=== PATIENT | male | born 1960 | race Caucasian/White ===

== ENCOUNTER → 2017-09-15 | Outpatient (CLI) | payer BC ==
--- NOTE | 2017-09-15 13:46 | CT ---
EXAMINATION TYPE: CT abdomen pelvis wo con DATE OF EXAM: 09/15/2017 COMPARISON: NONE HISTORY: Acute diverticulitis, right lower quadrant pain and flank pain CT DLP: 1848.4 mGycm Automated exposure control for dose reduction was used. TECHNIQUE: Helical acquisition of images was performed from the lung bases through the pelvis. FINDINGS: Lack of intravenous contrast limits evaluation of the solid viscera. LUNG BASES: No significant abnormality is appreciated. LIVER/GB: There is diffuse hypoattenuation of the hepatic parenchyma creating criteria for hepatic st eatosis. This limits evaluation for underlying hepatic masses as does lack of intravenous contrast. N o cholelithiasis is seen. Common bile duct is nonenlarged. No fat stranding surrounding the gallbladd er. PANCREAS: No ductal dilatation. Mild atrophy of the pancreatic head. SPLEEN: No significant abnormality is seen. ADRENALS: No nodularity or thickening. KIDNEYS: There is mild bilateral perinephric fat stranding that is nonspecific, however in this patie nt with flank pain correlation with urinalysis is recommended. No hydronephrosis or nephrolithiasis. FREE AIR: No free air is visualized ADENOPATHY: No greater than 1 cm short axis and within the abdomen or pelvis. REPRODUCTIVE ORGANS: Prostate gland is slightly heterogenous. URINARY BLADDER: No significant abnormality is seen. Small urachal remnant is incidentally noted. OSSEOUS STRUCTURES: Mild multilevel degenerative changes of the spine with intervertebral disc space r at L5-S1. BOWEL: The appendix is contrast-filled proximally and within normal limits of size without periappen diceal fat stranding. Terminal ileum is nonthickened. There is no evidence of dilated bowel or abhijit lonic fat stranding. No focal bowel wall thickening is appreciated. OTHER: Small fat filled filled umbilical hernia is incidentally noted. IMPRESSION: 1. NO CT EVIDENCE OF APPENDICITIS, COLITIS, CHOLECYSTITIS, OBSTRUCTIVE UROPATHY OR PANCREATITIS IN TH IS PATIENT WITH RIGHT-SIDED PAIN. NONSPECIFIC PERINEPHRIC FAT STRANDING IS SEEN. CORRELATION WITH URI NALYSIS IS RECOMMENDED 2. FINDINGS APPROACHING CRITERIA FOR MILD HEPATIC STEATOSIS.
== END | disposition home or self-care (01) ==
LOC: RADCTMAIN 11:48
PROVIDERS: ATTEND Family Medicine
DX: R10.9 Unspecified abdominal pain (principal)
CPT/HCPCS: 74176

== ENCOUNTER → 2017-09-19 | Outpatient (CLI) | payer BC ==
--- NOTE | 2017-09-19 09:37 | NM ---
EXAMINATION TYPE: NM hepatobiliary w EF DATE OF EXAM: 09/19/2017 COMPARISON: HIDA scan August 25, 2012. CT abdomen and pelvis September 15, 2017 HISTORY: Abdominal pain per order, epigastric pain with diminished appetite and nausea. TECHNIQUE: After the intravenous administration of 5 mCi Tc 99m Mebrofenin hepatobiliary scintigraphy is performed. Immediate images post injection. FINDINGS: There is satisfactory initial accumulation of tracer by the liver. The gallbladder is visualized wit hin 35 minutes. The small bowel activity is noted within 25 minutes. At one hour 8 ounces of oral e nsure plus is given to mimic CCK and gallbladder ejection fraction is calculated at 91 %, not deviate d from the normal range. Therefore there is no scintigraphic evidence of cystic or common bile duct obstruction to suggest acute cholecystitis. IMPRESSION: Ejection fraction is 91%, some consider this abnormal or a hyperkinetic response. This is consistent with prior HIDA scan.
== END | disposition home or self-care (01) ==
LOC: RADNMMAIN 07:02
PROVIDERS: ATTEND Family Medicine
DX: R10.9 Unspecified abdominal pain (principal); R19.7 Diarrhea, unspecified
CPT/HCPCS: 78226; A9537

== ENCOUNTER → 2018-06-14 | Outpatient (CLI) | payer BC ==
--- NOTE | 2018-06-14 13:30 | US ---
EXAMINATION TYPE: US carotid duplex BILAT DATE OF EXAM: 06/14/2018 COMPARISON: NONE CLINICAL HISTORY: R09.89 Other specified symptoms and signs involvin. EXAM MEASUREMENTS: RIGHT: Peak Systolic Velocity (PSV) cm/sec ----- Right CCA: 83.1 ----- Right ICA: 94.1 ----- Right ECA: 109.2 ICA/CCA ratio: 1.1 RIGHT: End Diastole cm/sec ----- Right CCA: 29.2 ----- Right ICA: 35.0 ----- Right ECA: 16.8 LEFT: Peak Systolic Velocity (PSV) cm/sec ----- Left CCA: 77.6 ----- Left ICA: 83.1 ----- Left ECA: 101.5 ICA/CCA ratio: 1.1 LEFT: End Diastole cm/sec ----- Left CCA: 25.9 ----- Left ICA: 31.1 ----- Left ECA: 19.0 VERTEBRALS (direction of flow): Right Vertebral: Antegrade Left Vertebral: Antegrade Rhythm: Arrhythmia, see page 24 of 51 No significant velocity elevations, minimal plaque. Short thick neck. IMPRESSION: 1. Mild degree of grayscale atheromatous plaquing with no sonographically evident hemodynamically sig nificant stenosis within either visualized carotid arterial system. 2. Cardiac arrhythmia. Correlate with EKG. Criteria for Assigning % of Stenosis / Diameter reduction (Estimation based on the indirect measurements of the internal carotid artery velocities (ICA PSV). 1. Normal (no stenosis)=ICA PSV < 125 cm/s: ratio < 2.0: ICA EDV<40 cm/s. 2. Less than 50% stenosis=ICA PSV < 125 cm/s: ratio < 2.0: ICA EDV<40 cm/s. 3. 50 to 69% stenosis=ICA PSV of 125 to 230 cm/s: ration 2.0 ? 4.0: ICA EDV 40-100 cm/s. 4. Greater than 70% stenosis to near occlusion= ICA PSV > 230 cm/s: ratio > 4.0: ICA EDV > 100 cm/s. 5. Near occlusion= ICA PSV velocities may be low or undetectable: variable ratio and ICA EDV. 6. Total occlusion=unable to detect flow.
== END ==
LOC: RADUSWWP 12:32
PROVIDERS: ATTEND Family Medicine
DX: I49.9 Cardiac arrhythmia, unspecified (principal); I70.90 Unspecified atherosclerosis
CPT/HCPCS: 93880

== ENCOUNTER 2019-12-07 12:27 | Inpatient (IN) | payer BC, MEDICARE ==
[2019-12-07] MEDS ORDERED: ONDANSETRON 4 MG/2 ML VIAL IVP STA (12:51)
[2019-12-07] MEDS ORDERED: SODIUM CHLORIDE 0.9% 1,000 ML IV STA ×2 (12:51)
[2019-12-07] MEDS ORDERED: KETOROLAC 15 MG/ML 1 ML VIAL IVP STA (12:51)
[2019-12-07 13:35] LABS: Basophils % (A) 0 %; Eosinophils # (A) 0.3 k/uL (0-0.7); Eosinophils % (A) 2 %; HCT 45.5 % (39.0-53.0); Lymphocytes # (A) 1.6 k/uL (1.0-4.8); Lymphocytes % (A) 15 %; MCH 31.2 pg (25.0-35.0); MCHC 35.1 g/dL (31.0-37.0); MCV 89.1 fL (80.0-100.0); Mean Platelet Volume 8.1; Monocytes # (A) 0.5 k/uL (0-1.0); Monocytes % (A) 5 %; Neutrophils # (A) 8.5 k/uL (1.3-7.7); Neutrophils % (A) 76 %; Platelet Count 219 k/uL (150-450); RBC 5.11 m/uL (4.30-5.90); RDW 12.4 % (11.5-15.5); WBC 11.1 k/uL (3.8-10.6)
[2019-12-07] MEDS ORDERED: methylPREDNISolone SOD SUCCI 125 MG/2 ML VIAL IV STA (13:38)
[2019-12-07] MEDS ORDERED: FAMOTIDINE 20 MG/2 ML VIAL IV STA (13:38)
[2019-12-07] MEDS ORDERED: diphenhydrAMINE 50 MG/ML 1 ML VIAL IVP STA (13:38)
--- NOTE | 2019-12-07 13:38 | ED ---
Abdominal Pain HPI - General Chief Complaint: Abdominal Pain Stated Complaint: Abd Pain, Nausea Time Seen by Provider: 12/07/19 12:30 Source: patient, RN notes reviewed, old records reviewed Mode of arrival: wheelchair Limitations: no limitations - History of Present Illness Initial Comments: This is a 59-year-old male with a history of diabetes hypertension palpitations in the past with ablation who states he had the onset over last 4 days of abdominal pain. He's had some nausea. One bout of diarrhea but today he had 3 formed stools. He denies any fevers chills or sweats he has low-grade nausea he states abdominal pain is dull achy in nature 8-04/05/09 severity.. He states he saw his family doctor 2 days ago and was found have some elevation in his pancreatic enzymes. He's had no abdominal surgery other than he did have a lumbar procedure that was transabdominal. Patient does state the pain gets worse with certain movements and deep breathing. MD Complaint: abdominal pain - Related Data Home Medications Medication Instructions Recorded Confirmed Fluticasone Propionate [Flovent 2 puff INHALATION BID 09/29/17 12/07/19 Hfa 110mcg] metFORMIN HCL [Glucophage] 500 mg PO TID 09/29/17 12/07/19 ALPRAZolam [Xanax] 0.5 mg PO HS PRN 12/07/19 12/07/19 Colestipol HCl 1 tab PO HS 12/07/19 12/07/19 Colestipol HCl 2 tab PO DAILY 12/07/19 12/07/19 Ibuprofen [Motrin] 800 mg PO Q8H 12/07/19 12/07/19 amLODIPine/ATORVASTATIN 0.5 tab PO HS 12/07/19 12/07/19 [amLODIPine/ATORVASTATIN 5-20 MG] Allergies Allergy/AdvReac Type Severity Reaction Status Date / Time amoxicillin Allergy Anaphylaxis Verified 12/07/19 12:36 Iodinated Contrast Media Allergy Anaphylaxis Verified 12/07/19 12:36 [Iodinated Contrast- Oral and IV Dye] Review of Systems ROS Statement: Those systems with pertinent positive or pertinent negative responses have been documented in the HPI. ROS Other: All systems not noted in ROS Statement are negative. Past Medical History Past Medical History: Asthma, Coronary Artery Disease (CAD), Diabetes Mellitus, Hyperlipidemia Additional Past Medical History / Comment(s): History of PVC's and states he had a [facility] States he is dx. with PAC's. History of Any Multi-Drug Resistant Organisms: None Reported Past Surgical History: Back Surgery, Cardiac Ablation Past Anesthesia/Blood Transfusion Reactions: No Reported Reaction Past Psychological History: No Psychological Hx Reported Smoking Status: Never smoker Past Alcohol Use History: None Reported Past Drug Use History: None Reported General Exam - General Exam Comments Initial Comments: This is a well-developed well-nourished awake alert oriented times 3 male Limitations: no limitations General appearance: alert, anxious, in distress Head exam: Present: atraumatic, normocephalic, normal inspection Eye exam: Present: normal appearance, PERRL, EOMI. Absent: scleral icterus, conjunctival injection, periorbital swelling ENT exam: Present: mucous membranes dry Neck exam: Present: normal inspection. Absent: tenderness, meningismus, lymphadenopathy Respiratory exam: Present: normal lung sounds bilaterally. Absent: respiratory distress, wheezes, rales, rhonchi, stridor Cardiovascular Exam: Present: regular rate, normal rhythm, normal heart sounds. Absent: systolic murmur, diastolic murmur, rubs, gallop, clicks GI/Abdominal exam: Present: soft, tenderness (Tennis palpation over the epigastrium no overt guarding rebound masses or bruits), normal bowel sounds. Absent: distended, guarding, rebound, rigid Rectal exam: Present: deferred Extremities exam: Present: normal inspection, full ROM, normal capillary refill. Absent: tenderness, pedal edema, joint swelling, calf tenderness Back exam: Present: normal inspection Neurological exam: Present: alert, oriented X3, CN II-XII intact Psychiatric exam: Present: normal affect, normal mood Skin exam: Present: warm, dry, intact, normal color. Absent: rash Course Vital Signs 12/07/19 12/07/19 12/07/19 12:30 13:54 14:58 Temperature 97.9 F Pulse Rate 82 72 70 Respiratory 20 18 18 Rate Blood Pressure 177/107 171/91 150/86 O2 Sat by Pulse 95 95 95 Oximetry Medical Decision Making - Medical Decision Making I did discuss findings with the patient and his . Patient be admitted for t reatment of acute pancreatitis and intractable abdominal pain. The case is discussed with Dr. Sharp. - Lab Data Result diagrams: 12/07/19 13:06 12/07/19 13:06 Lab Results 12/07/19 12/07/19 12/07/19 Range/Units 13:06 13:06 13:06 WBC 11.1 H (3.8-10.6) k/uL RBC 5.11 (4.30-5.90) m/uL Hgb 16.0 (13.0-17.5) gm/dL Hct 45.5 (39.0-53.0) % MCV 89.1 (80.0-100.0) fL MCH 31.2 (25.0-35.0) pg MCHC 35.1 (31.0-37.0) g/dL RDW 12.4 (11.5-15.5) % Plt Count 219 (150-450) k/uL Neutrophils % 76 % Lymphocytes % 15 % Monocytes % 5 % Eosinophils % 2 % Basophils % 0 % Neutrophils # 8.5 H (1.3-7.7) k/uL Lymphocytes # 1.6 (1.0-4.8) k/uL Monocytes # 0.5 (0-1.0) k/uL Eosinophils # 0.3 (0-0.7) k/uL Basophils # 0.0 (0-0.2) k/uL Sodium 135 L (137-145) mmol/L Potassium 4.2 (3.5-5.1) mmol/L Chloride 101 (98-107) mmol/L Carbon Dioxide 23 (22-30) mmol/L Anion Gap 11 mmol/L BUN 17 (9-20) mg/dL Creatinine 0.80 (0.66-1.25) mg/dL Est GFR (CKD-EPI)AfAm >90 (>60 ml/min/1.73 sqM) Est GFR (CKD-EPI)NonAf >90 (>60 ml/min/1.73 sqM) Glucose 156 H (74-99) mg/dL Plasma Lactic Acid Abdullahi 0.9 (0.7-2.0) mmol/L Calcium 9.8 (8.4-10.2) mg/dL Total Bilirubin 1.0 (0.2-1.3) mg/dL AST 24 (17-59) U/L ALT 33 (4-49) U/L Alkaline Phosphatase 89 (38-126) U/L Creatine Kinase 84 (55-170) U/L Total Protein 7.5 (6.3-8.2) g/dL Albumin 4.5 (3.5-5.0) g/dL Amylase 95 (30-110) U/L Lipase 618 H (23-300) U/L - Radiology Data Radiology results: report reviewed (I did review the imaging and report evidence of a gritty had inflammation consistent with pancreatitis.), image reviewed Disposition Clinical Impression: Abdominal pain, Acute pancreatitis Disposition: ADMITTED IP TO THIS [facility] Condition: Fair Referrals: Carlos Sharp DO [Primary Care Provider] - 1-2 days
[2019-12-07 13:51] LABS: ALT 33 U/L (4-49); AST 24 U/L (17-59); African American GFR (CKD) >90 (>60 ml/min/1.73 sqM); Albumin 4.5 g/dL (3.5-5.0); Alkaline Phosphatase 89 U/L (38-126); Amylase 95 U/L (30-110); Anion Gap 11 mmol/L; Blood Urea Nitrogen 17 mg/dL (9-20); Calcium 9.8 mg/dL (8.4-10.2); Carbon Dioxide 23 mmol/L (22-30); Chloride 101 mmol/L (98-107); Creatine Kinase 84 U/L (55-170); Glucose 156 mg/dL (74-99); Non-African American GFR(CKD) >90 (>60 ml/min/1.73 sqM); Potassium 4.2 mmol/L (3.5-5.1); Sodium 135 mmol/L (137-145); Total Protein 7.5 g/dL (6.3-8.2)
[2019-12-07] MEDS ORDERED: HYDROmorphone 1 MG/ML 1 ML SYRINGE IVP STA (13:51)
--- NOTE | 2019-12-07 14:16 | XR ---
EXAMINATION TYPE: XR KUB DATE OF EXAM: 12/07/2019 1:43 PM CLINICAL HISTORY: Abdominal pain TECHNIQUE: Supine images of the abdomen and pelvis were obtained COMPARISON: None. FINDINGS: Nonspecific bowel gas pattern. No organomegaly. L5-S1 surgical changes of the lumbosacral s pine. No pneumoperitoneum. Lung bases are clear. No unusual calcifications. IMPRESSION: Nonspecific bowel gas pattern.
[2019-12-07] MEDS ORDERED: HYDROmorphone 0.5 MG/0.5 ML SYRINGE IVP STA (14:55)
--- NOTE | 2019-12-07 14:59 | CT ---
EXAMINATION TYPE: CT abdomen pelvis w con DATE OF EXAM: 12/07/2019 COMPARISON: CT abdomen pelvis 09/15/2017 HISTORY: Stomach pains and nausea CT DLP: 2564.8 mGycm Automated exposure control for dose reduction was used. TECHNIQUE: Helical acquisition of images was performed from the lung bases through the pelvis. CONTRAST: Performed without Oral Contrast and with IV Contrast, patient injected with 100 mL of Isovue 300. FINDINGS: LUNG BASES: Mild bibasilar atelectasis. LIVER: Normal. BILIARY SYSTEM: Gallbladder layering excreted contrast versus inspissated bile. No intrahepatic or ex trahepatic biliary ductal dilatation. PANCREAS: There is peripancreatic inflammation about the head and uncinate process. No peripancreatic fluid collection. SPLEEN: Normal. ADRENALS: Normal. KIDNEYS: Normal. BOWEL: No evidence of bowel obstruction or thickening. There is periduodenal inflammation in the reg ion of the peripancreatic inflammation. Mild colonic diverticulosis. No acute diverticulitis. Normal appendix. PERITONEUM: No free air is visualized. Trace pelvic free fluid. Right upper quadrant mesenteric stra nding. ADENOPATHY: No lymphadenopathy. PELVIS: Normal. VASCULATURE: No abdominal aortic aneurysm. MUSCULOSKELETAL: Postsurgical changes at L5-S1. Degenerative changes of the spine. IMPRESSION: Acute pancreatitis of the head and uncinate process. No evidence of peripancreatic fluid collection.
[2019-12-07] MEDS ORDERED: NALOXONE 0.4 MG/ML 1 ML VIAL IV PRN (15:16)
[2019-12-07] MEDS ORDERED: ONDANSETRON 4 MG/2 ML VIAL IVP PRN (15:16)
[2019-12-07] MEDS ORDERED: HYDROmorphone 0.5 MG/0.5 ML SYRINGE IVP PRN (15:16)
[2019-12-07 19:36] LABS: Appearance,Urine Clear (Clear); Bilirubin,Urine Negative (Negative); Blood,Urine Negative (Negative); Color,Urine Yellow; Glucose,Urine (UA) Negative (Negative); Ketones,Urine 1+ (Negative); Leukocyte Esterase,Urine Negative (Negative); Nitrite,Urine Negative (Negative); PH, Urine 5.5 (5.0-8.0); Protein,Urine Trace (Negative); Urobilinogen,Urine <2.0 mg/dL (<2.0)
[2019-12-07 19:50] LABS: Specific Gravity,Urine >1.050 (1.001-1.035)
[2019-12-07] MEDS: SODIUM CHLORIDE 0.9% 1,000 ML IV SCH (19:52)
[2019-12-07 20:11] LABS: Glucose,Whole Blood 192 mg/dL (75-99)
[2019-12-07] MEDS: FLUTICASONE 110 MCG INHALER INHALATION SCH (20:16)
[2019-12-08] MEDS: SODIUM CHLORIDE 0.9% 1,000 ML IV SCH ×3 (02:19→12:20)
[2019-12-08 07:43] LABS: Glucose,Whole Blood 193 mg/dL (75-99)
[2019-12-08] MEDS: FLUTICASONE 110 MCG INHALER INHALATION SCH (07:59)
[2019-12-08 10:38] LABS: Basophils % (A) 0 %; Eosinophils % (A) 0 %; HCT 44.8 % (39.0-53.0); Lymphocytes # (A) 1.6 k/uL (1.0-4.8); Lymphocytes % (A) 13 %; MCH 30.5 pg (25.0-35.0); MCHC 33.5 g/dL (31.0-37.0); MCV 91.2 fL (80.0-100.0); Monocytes # (A) 0.6 k/uL (0-1.0); Monocytes % (A) 5 %; Neutrophils # (A) 10.1 k/uL (1.3-7.7); Neutrophils % (A) 81 %; Platelet Count 244 k/uL (150-450); RBC 4.91 m/uL (4.30-5.90); RDW 12.4 % (11.5-15.5); WBC 12.5 k/uL (3.8-10.6)
[2019-12-08 10:48] LABS: ALT 27 U/L (4-49); AST 20 U/L (17-59); African American GFR (CKD) >90 (>60 ml/min/1.73 sqM); Albumin 4.3 g/dL (3.5-5.0); Alkaline Phosphatase 78 U/L (38-126); Anion Gap 8 mmol/L; Blood Urea Nitrogen 21 mg/dL (9-20); Calcium 9.4 mg/dL (8.4-10.2); Carbon Dioxide 27 mmol/L (22-30); Chloride 101 mmol/L (98-107); Glucose 189 mg/dL (74-99); Non-African American GFR(CKD) >90 (>60 ml/min/1.73 sqM); Potassium 4.7 mmol/L (3.5-5.1); Sodium 136 mmol/L (137-145); Total Bilirubin 0.8 mg/dL (0.2-1.3); Total Protein 7.1 g/dL (6.3-8.2)
[2019-12-08 11:30] LABS: Glucose,Whole Blood 222 mg/dL (75-99)
--- NOTE | 2019-12-08 14:12 | CONS ---
CONSULTATION DATE OF SERVICE: 12/08/2019 REQUESTING PHYSICIAN: Dr. Sharp REASON FOR CONSULTATION: Acute pancreatitis. HISTORY OF PRESENT ILLNESS: The patient is a 59-year-old pleasant white male with history of diabetes mellitus and hypertension, came to the emergency room yesterday complaining of epigastric pain for the last four days duration. He recently traveled out of state for three days and on his way back he started having some epigastric discomfort, some nausea, no emesis. The pain continued to progressively get worse. He went and saw Dr. Sharp on an outpatient basis and had some labs done and was told he has mild elevation of amylase and lipase. Yesterday the pain intensified and hence he came into the emergency room and subsequently admitted to the hospital for further evaluation. In the ER, was noted to have elevated amylase and lipase consistent with acute pancreatitis. No prior history of pancreatitis. No history of alcohol use. No family history of pancreatitis. Never had these symptoms in the past. This morning he is feeling much better. PAST MEDICAL HISTORY: Hypertension, diabetes mellitus, anxiety. MEDICATIONS AT HOME: Flovent, Glucophage, Xanax, colestipol, ibuprofen, amlodipine, atorvastatin. ALLERGIES: AMOXICILLIN AND IV DYE. SOCIAL HISTORY: No smoking, no alcohol use. FAMILY HISTORY: Unremarkable. PAST SURGICAL HISTORY: Back surgery, cardiac ablation. REVIEW OF SYSTEMS: CARDIOPULMONARY: No chest pain or shortness of breath. : No dysuria or hematuria. MUSCULOSKELETAL: Unremarkable. SKIN: Unremarkable. ENDOCRINE: Unremarkable. PSYCHIATRIC: Unremarkable. NEUROLOGY: Unremarkable. ENDOCRINE: Diabetes mellitus ENT/VISION: Unremarkable. CONSTITUTIONAL: No recent weight loss. No fever, chills, night sweats. PHYSICAL EXAMINATION: Blood pressure is 138/82, pulse 65, temperature 97.7. HEENT examination unremarkable. Conjunctivae pink, sclerae anicteric. Oral cavity no lesions. NECK: No JVD or lymph node enlargement. CHEST: Clear to auscultation. HEART: Regular rate and rhythm. ABDOMEN: Mild tenderness in the epigastric area. Rest of the abdomen was benign. Bowel sounds are positive. No organomegaly. EXTREMITIES: No pedal edema. SKIN: No rashes. NEUROLOGIC: Alert and oriented x3. No focal deficits. LABS: WBC 12.5, hemoglobin 15, platelets normal. Amylase was 95, lipase was 618. ALT, AST, T-bilirubin and alkaline phosphatase are within normal limits. Repeat labs from today, lipase is 110. LFTs are normal. He did have a CT of the abdomen and pelvis done yesterday that showed there is peripancreatic inflammation in the head and uncinate process of the pancreas consistent with pancreatitis. Gallbladder layering suggestive of stone. No intra and extrahepatic biliary ductal dilation noted. IMPRESSION: 1. Mild acute pancreatitis, etiology unclear. Patient has no history of alcohol use. Gallbladder showed some sludge but no evidence of gallstones. Liver function tests are within normal limits which makes it unlikely we are dealing with biliary pancreatitis. Amylase and lipase have normalized today. 2. History of diabetes mellitus. 3. History of hypertension. RECOMMENDATIONS: 1. Advance diet as tolerated. 2. He can be discharged home today with an outpatient followup with GI at [facility] in 1-2 weeks. Thank you for this consultation. MMODL / IJN: [id number] /
[2019-12-08 14:27] VITALS: BP 150/84; PULSE 74; RESP 14; TEMP 98.2
--- NOTE | 2019-12-08 15:31 | P.HPIM ---
History of Present Illness H&P Date: 12/08/19 Chief Complaint: Abdominal pain and nausea This is a 59-year-old male with a history of diabetes hypertension palpitations in the past with ablation who states he had the onset over last 4 days of abdominal pain. He's had some nausea. One bout of diarrhea but today he had 3 formed stools. He denies any fevers chills or sweats he has low-grade nausea he states abdominal pain is dull achy in nature 8-04/05/09 severity.. He states he saw his family doctor 2 days ago and was found have some elevation in his pancreatic enzymes. He's had no abdominal surgery other than he did have a lumbar procedure that was transabdominal. Patient does state the pain gets worse with certain movements and deep breathing. Workup in ED revealed an elevated lipase of 610; CT of abdomen was done which was consistent with acute pancreatitis; patient is admitted to hospital for further treatment Review of Systems REVIEW OF SYSTEMS: CONSTITUTIONAL: No fever, no malaise, no fatigue. HEENT: No recent visual problems or hearing problems. Denied any sore throat. CARDIOVASCULAR: No chest pain, orthopnea, PND, no palpitations, no syncope. PULMONARY: No shortness of breath, no cough, no hemoptysis. GASTROINTESTINAL: No diarrhea, no nausea, no vomiting, no abdominal pain. NEUROLOGICAL: No headaches, no weakness, no numbness. HEMATOLOGICAL: Denies any bleeding or petechiae. GENITOURINARY: Denies any burning micturition, frequency, or urgency. MUSCULOSKELETAL/RHEUMATOLOGICAL: Denies any joint pain, swelling, or any muscle pain. ENDOCRINE: Denies any polyuria or polydipsia. The rest of the 14-point review of systems is negative. Past Medical History Past Medical History: Asthma, Coronary Artery Disease (CAD), Diabetes Mellitus, Hyperlipidemia Additional Past Medical History / Comment(s): History of PVC's and states he had a [facility] States he is dx. with PAC's. History of Any Multi-Drug Resistant Organisms: None Reported Past Surgical History: Back Surgery, Cardiac Ablation Past Anesthesia/Blood Transfusion Reactions: No Reported Reaction Past Psychological History: No Psychological Hx Reported Smoking Status: Never smoker Past Alcohol Use History: None Reported Past Drug Use History: None Reported Medications and Allergies Home Medications Medication Instructions Recorded Confirmed Type Fluticasone Propionate [Flovent 2 puff INHALATION BID 09/29/17 12/07/19 History Hfa 110mcg] metFORMIN HCL [Glucophage] 500 mg PO TID 09/29/17 12/07/19 History ALPRAZolam [Xanax] 0.5 mg PO HS PRN 12/07/19 12/07/19 History Colestipol HCl 1 tab PO HS 12/07/19 12/07/19 History Colestipol HCl 2 tab PO DAILY 12/07/19 12/07/19 History Ibuprofen [Motrin] 800 mg PO Q8H 12/07/19 12/07/19 History amLODIPine/ATORVASTATIN 0.5 tab PO HS 12/07/19 12/07/19 History [amLODIPine/ATORVASTATIN 5-20 MG] Allergies Allergy/AdvReac Type Severity Reaction Status Date / Time amoxicillin Allergy Anaphylaxis Verified 12/07/19 12:36 Iodinated Contrast Media Allergy Anaphylaxis Verified 12/07/19 12:36 [Iodinated Contrast- Oral and IV Dye] Physical Exam Vitals: Vital Signs Temp Pulse Pulse Pulse Resp BP BP 12/08/19 05:23 97.9 F 65 18 138/82 12/07/19 20:04 98.0 F 72 17 136/80 12/07/19 16:15 98.4 F 69 18 151/93 12/07/19 14:58 70 18 150/86 12/07/19 13:54 72 18 171/91 Pulse Ox 12/08/19 05:23 95 12/07/19 20:04 97 12/07/19 16:15 94 L 12/07/19 14:58 95 12/07/19 13:54 95 Intake and Output 12/07/19 12/08/19 12/08/19 22:59 06:59 14:59 Intake Total 520 1400 Balance 520 1400 Intake: Intake, IV Titration 520 1400 Amount Sodium Chloride 0.9% 1, 520 1400 000 ml @ 130 mls/hr IV . Q7H42M [facility] Rx#:[id number] Other: Voiding Method Toilet Toilet Toilet Urinal Urinal Urinal # Voids 2 2 Weight 129.274 kg This is a well-developed well-nourished awake alert oriented times 3 male Limitations: no limitations General appearance: alert, anxious, in distress Head exam: Present: atraumatic, normocephalic, normal inspection Eye exam: Present: normal appearance, PERRL, EOMI. Absent: scleral icterus, conjunctival injection, periorbital swelling ENT exam: Present: mucous membranes dry Neck exam: Present: normal inspection. Absent: tenderness, meningismus, lymphadenopathy Respiratory exam: Present: normal lung sounds bilaterally. Absent: respiratory distress, wheezes, rales, rhonchi, stridor Cardiovascular Exam: Present: regular rate, normal rhythm, normal heart sounds. Absent: systolic murmur, diastolic murmur, rubs, gallop, clicks GI/Abdominal exam: Present: soft, tenderness (Tennis palpation over the epigastrium no overt guarding rebound masses or bruits), normal bowel sounds. Absent: distended, guarding, rebound, rigid Rectal exam: Present: deferred Extremities exam: Present: normal inspection, full ROM, normal capillary refill. Absent: tenderness, pedal edema, joint swelling, calf tenderness Back exam: Present: normal inspection Neurological exam: Present: alert, oriented X3, CN II-XII intact Psychiatric exam: Present: normal affect, normal mood Results CBC & Chem 7: 12/08/19 10:17 12/08/19 10:17 Labs: Abnormal Lab Results - Last 24 Hours (Table) 12/07/19 12/07/19 12/07/19 Range/Units 12:51 13:06 13:06 WBC 11.1 H (3.8-10.6) k/uL Neutrophils # 8.5 H (1.3-7.7) k/uL Sodium 135 L (137-145) mmol/L BUN (9-20) mg/dL Glucose 156 H (74-99) mg/dL POC Glucose (mg/dL) (75-99) mg/dL Lipase 618 H (23-300) U/L Ur Specific [place] >1.050 H (1.001-1.035) Urine Protein Trace H (Negative) Urine Ketones 1+ H (Negative) 12/07/19 12/08/19 12/08/19 Range/Units 20:08 07:42 10:17 WBC 12.5 H (3.8-10.6) k/uL Neutrophils # 10.1 H (1.3-7.7) k/uL Sodium (137-145) mmol/L BUN (9-20) mg/dL Glucose (74-99) mg/dL POC Glucose (mg/dL) 192 H 193 H (75-99) mg/dL Lipase (23-300) U/L Ur Specific [place] (1.001-1.035) Urine Protein (Negative) Urine Ketones (Negative) 12/08/19 12/08/19 Range/Units 10:17 11:28 WBC (3.8-10.6) k/uL Neutrophils # (1.3-7.7) k/uL Sodium 136 L (137-145) mmol/L BUN 21 H (9-20) mg/dL Glucose 189 H (74-99) mg/dL POC Glucose (mg/dL) 222 H (75-99) mg/dL Lipase (23-300) U/L Ur Specific [place] (1.001-1.035) Urine Protein (Negative) Urine Ketones (Negative) Thrombosis Risk Factor Assmnt - Choose All That Apply Any of the Below Risk Factors Present?: Yes Each Factor Represents 1 point: Age 41-60 years, Obesity (BMI >25) Other Risk Factors: No Other congenital or acquired thrombophilia - If yes, enter type in comment: No Thrombosis Risk Factor Assessment Total Risk Factor Score: 2 Thrombosis Risk Factor Assessment Level: Low Risk Assessment and Plan Assessment: 1. Abdominal pain/acute pancreatitis; etiology is unclear; gallbladder shows sludge but no evidence of gallstones; liver function is within normal limits - Patient is admitted for IV fluid hydration; Pepcid 20 mg IV every 12 hours; pain controlled with IV Dilaudid versus Toradol - We will keep patient nothing by mouth and monitor clinically; GI is consulted and recommended outpatient workup 2. Asthma; not in exacerbation; continue with home inhaler therapy 3. Diabetes mellitus; patient takes metformin 500 mg 3 times a day; we will hold off and monitor Accu-Cheks before meals and at bedtime with insulin sliding scale 4. Hypertension; amlodipine 5 mg daily 5. Hyperlipidemia; patient takes atorvastatin 20 mg daily; we will hold off to oral intake is established DVT prophylaxis; SCDs CODE STATUS; full code
--- NOTE | 2019-12-08 15:33 | P.DS ---
Providers Date of admission: 12/07/19 15:37 Expected date of discharge: 12/08/19 Attending physician: Carlos Sharp Consults: 12/07/19 15:17 Consult Physician Routine Consulting Provider: Brooke Menchaca Consult Reason/Comments: Abdominal pain, acute pancreatitis Do you want consulting provider notified?: Yes Primary care physician: Carlos Sharp [facility] Course: This is a 59-year-old male with a history of diabetes hypertension palpitations in the past with ablation who states he had the onset over last 4 days of abdominal pain. He's had some nausea. One bout of diarrhea but today he had 3 formed stools. He denies any fevers chills or sweats he has low-grade nausea he states abdominal pain is dull achy in nature 8-04/05/09 severity.. He states he saw his family doctor 2 days ago and was found have some elevation in his pancreatic enzymes. He's had no abdominal surgery other than he did have a lumbar procedure that was transabdominal. Patient does state the pain gets worse with certain movements and deep breathing. Workup in ED revealed an elevated lipase of 610; CT of abdomen was done which was consistent with acute pancreatitis; patient is admitted to hospital for further treatment 1. Abdominal pain/acute pancreatitis; etiology is unclear; gallbladder shows sludge but no evidence of gallstones; liver function is within normal limits - Patient is admitted for IV fluid hydration; Pepcid 20 mg IV every 12 hours; pain controlled with IV Dilaudid versus Toradol - We will keep patient nothing by mouth and monitor clinically; GI is consulted and recommended outpatient workup 2. Asthma; not in exacerbation; continue with home inhaler therapy 3. Diabetes mellitus; patient takes metformin 500 mg 3 times a day; we will hold off and monitor Accu-Cheks before meals and at bedtime with insulin sliding scale 4. Hypertension; amlodipine 5 mg daily 5. Hyperlipidemia; patient takes atorvastatin 20 mg daily; we will hold off to oral intake is established Repeat lipase was within normal limits; patient was evaluated by GI and was recommended further workup as an outpatient Patient Condition at Discharge: Fair Plan - Discharge Summary New Discharge Prescriptions: No Action Fluticasone Propionate [Flovent Hfa 110mcg] 2 puff INHALATION BID metFORMIN HCL [Glucophage] 500 mg PO TID ALPRAZolam [Xanax] 0.5 mg PO HS PRN PRN Reason: Anxiety amLODIPine/ATORVASTATIN [amLODIPine/ATORVASTATIN 5-20 MG] 0.5 tab PO HS Colestipol HCl 1 tab PO HS Ibuprofen [Motrin] 800 mg PO Q8H Colestipol HCl 2 tab PO DAILY Discharge Medication List Fluticasone Propionate [Flovent Hfa 110mcg] 2 puff INHALATION BID 09/29/17 [History] metFORMIN HCL [Glucophage] 500 mg PO TID 09/29/17 [History] ALPRAZolam [Xanax] 0.5 mg PO HS PRN 12/07/19 [History] Colestipol HCl 1 tab PO HS 12/07/19 [History] Colestipol HCl 2 tab PO DAILY 12/07/19 [History] Ibuprofen [Motrin] 800 mg PO Q8H 12/07/19 [History] amLODIPine/ATORVASTATIN [amLODIPine/ATORVASTATIN 5-20 MG] 0.5 tab PO HS 12/07/19 [History] Follow up Appointment(s)/Referral(s): Carlos Sharp DO [Primary Care Provider] - 1-2 days Patient Instructions/Handouts: Pancreatitis (DC), Low Fat Diet (DC), Acute Abdominal Pain (DC)
== END 2019-12-08 16:10 | disposition home or self-care (01) | DRG 440 ==
LOC: EC 12:27 → 1SOBS 15:21 → OBSVTOIN 15:37 → 6NMEDSUR 15:50
PROVIDERS: ADMIT Family Medicine; ATTEND Family Medicine
DX: K85.90 Acute pancreatitis without necrosis or infection, unspecified (principal); J45.909 Unspecified asthma, uncomplicated; I25.10 Atherosclerotic heart disease of native coronary artery without angina pectoris; I10 Essential (primary) hypertension; E78.5 Hyperlipidemia, unspecified; E11.9 Type 2 diabetes mellitus without complications; F41.9 Anxiety disorder, unspecified; K82.8 Other specified diseases of gallbladder; Z79.51 Long term (current) use of inhaled steroids; Z79.84 Long term (current) use of oral hypoglycemic drugs; Z79.899 Other long term (current) drug therapy; Z86.79 Personal history of other diseases of the circulatory system; Z88.0 Allergy status to penicillin; Z91.041 Radiographic dye allergy status; Z98.890 Other specified postprocedural states
CPT/HCPCS: 36415; 74018; 74177; 80053; 81003; 82150; 82550; 83605; 83690; 85025; 94640; 96361; 96374; 96375; 96376; 99285

== ENCOUNTER → 2021-08-07 | Outpatient (CLI) | payer BC ==
--- NOTE | 2021-08-07 15:48 | US ---
EXAMINATION TYPE: US carotid duplex BILAT DATE OF EXAM: 08/07/2021 COMPARISON: NONE CLINICAL HISTORY: R00.2 PALPITATIONS. EXAM MEASUREMENTS: RIGHT: Peak Systolic Velocity (PSV) cm/sec ----- Right CCA: 82.5 ----- Right ICA: 104.3 ----- Right ECA: 131.8 ICA/CCA ratio: 1.3 RIGHT: End Diastole cm/sec ----- Right CCA: 18.0 ----- Right ICA: 42.2 ----- Right ECA: 12.3 LEFT: Peak Systolic Velocity (PSV) cm/sec ----- Left CCA: 115.8 ----- Left ICA: 113.2 ----- Left ECA: 89.7 ICA/CCA ratio: 1.0 LEFT: End Diastole cm/sec ----- Left CCA: 25.9 ----- Left ICA: 22.0 ----- Left ECA: 0.0 VERTEBRALS (direction of flow): Right Vertebral: Antegrade Left Vertebral: Antegrade Rhythm: Normal No significant stenosis seen. No elevated velocities, IMPRESSION: 1. No significant flow-limiting stenosis based on velocities. Criteria for Assigning % of Stenosis / Diameter reduction (Estimation based on the indirect measurements of the internal carotid artery velocities (ICA PSV). 1. Normal (no stenosis)=ICA PSV < 125 cm/s: ratio < 2.0: ICA EDV<40 cm/s. 2. Less than 50% stenosis=ICA PSV < 125 cm/s: ratio < 2.0: ICA EDV<40 cm/s. 3. 50 to 69% stenosis=ICA PSV of 125 to 230 cm/s: ration 2.0 ? 4.0: ICA EDV 40-100 cm/s. 4. Greater than 70% stenosis to near occlusion= ICA PSV > 230 cm/s: ratio > 4.0: ICA EDV > 100 cm/s. 5. Near occlusion= ICA PSV velocities may be low or undetectable: variable ratio and ICA EDV. 6. Total occlusion=unable to detect flow.
--- NOTE | 2021-08-08 14:48 | CA ---
Transthoracic Echo Report Name: Ricky Jarrett Age: 61 Gender: M : 1960 Exam Date: 08/07/2021 14:53 Exam Location: [place] [facility] Ht (in): 72 Wt (lb): 274 Ordering Physician: Isaiah Ibarra DO Attending/Referring Phys: Loader Technician Rosa M Pepper RDCS Procedure CPT: Indications: R00.2 palpitations Cardiac Hx: Ablation. Technical Quality: Contrast 1: Total Dose (mL): Contrast 2: Total Dose (mL): MEASUREMENTS (Male / Female) Normal Values 2D ECHO LV Diastolic Diameter PLAX 5.0 cm 4.2 - 5.9 / 3.9 - 5.3 cm LV Systolic Diameter PLAX 3.1 cm IVS Diastolic Thickness 1.0 cm 0.6 - 1.0 / 0.6 - 0.9 cm LVPW Diastolic Thickness 1.6 cm 0.6 - 1.0 / 0.6 - 0.9 cm LV Relative Wall Thickness 0.5 RV Internal Dim ED PLAX 3.5 cm LA Systolic Diameter LX 4.2 cm 3.0 - 4.0 / 2.7 - 3.8 cm LA Volume 51.2 cm??? 18 - 58 / 22 - 52 cm??? M-MODE Aortic Root Diameter MM 3.4 cm LA Systolic Diameter MM 4.3 cm LA Ao Ratio MM 1.3 MV E Point Septal Separation 0.4 cm AV Cusp Separation MM 2.0 cm DOPPLER MV Area PHT 3.4 cm??? Mitral E Point Velocity 60.5 cm/s Mitral A Point Velocity 69.1 cm/s Mitral E to A Ratio 0.9 MV Deceleration Time 225.6 ms MV E' Velocity 6.9 cm/s Mitral E to MV E' Ratio 8.8 TR Peak Velocity 203.5 cm/s TR Peak Gradient 16.6 mmHg Right Ventricular Systolic Press 21.6 mmHg FINDINGS Left Ventricle Normal Left ventricular size, wall thickness, systolic function with no obvious regional wall motion abnormalities. Normal Left ventricular diastolic filling pattern. Right Ventricle Normal right ventricular size and function. Right Atrium Normal right atrial size. Left Atrium Mildly increased left atrial diameter. Mitral Valve Mild mitral regurgitation. Aortic Valve Trileaflet aortic valve. Tricuspid Valve Mild tricuspid regurgitation. Pulmonic Valve Structurally normal pulmonic valve. Pericardium Normal pericardium. Aorta Normal size aortic root and proximal ascending aorta. CONCLUSIONS Normal LV dimension and systolic function. Normal LV wall thickness. No wall motion abnormalities Normal right ventricular dimension and systolic function Overall normal intracardiac valves Previewed by: Dr. Jose Enrique Gonzalez MD (Electronically Signed) Final Date: 08 Aug 2021 14:47
== END | disposition home or self-care (01) ==
LOC: RADECHMAIN 14:37
PROVIDERS: ATTEND Family Medicine
DX: R00.2 Palpitations (principal)
CPT/HCPCS: 93306; 93880

== ENCOUNTER 2022-04-17 09:01 | Emergency (ER) | payer BC ==
[2022-04-17] MEDS ORDERED: ONDANSETRON 4 MG/2 ML VIAL IVP STA (09:20)
--- NOTE | 2022-04-17 09:43 | ED ---
Nausea/Vomiting/Diarrhea HPI - General Chief complaint: Nausea/Vomiting/Diarrhea Stated complaint: post op-vomiting & no bowel movement Time Seen by Provider: 04/17/22 09:15 Source: patient Mode of arrival: ambulatory Limitations: no limitations - History of Present Illness Initial comments: 62 year-old male patient presents to the emergency department for evaluation of vomiting, abdominal discomfort, and constipation. Patient states he has not had a bowel movement since the procedure on Tuesday04/12/22 about 5 days ago. State he had a morphine pain pump initially then was discharged with pain medication. Patient states that he is having some right sided abdominal discomfort. Started feeling nauseated this morning and did have two episodes of vomiting. He denies any fever or chills. Denies any chest pain or shortness of breath. Denies any back pain or leg pain. - Related Data Home Medications Medication Instructions Recorded Confirmed Fluticasone Propionate [Flovent 2 puff INHALATION BID 09/29/17 12/07/19 Hfa 110 mcg] metFORMIN HCL [Glucophage] 500 mg PO TID 09/29/17 12/07/19 ALPRAZolam [Xanax] 0.5 mg PO HS PRN 12/07/19 12/07/19 Colestipol HCl 1 tab PO HS 12/07/19 12/07/19 Colestipol HCl 2 tab PO DAILY 12/07/19 12/07/19 Ibuprofen [Motrin] 800 mg PO Q8H 12/07/19 12/07/19 amLODIPine/ATORVASTATIN 0.5 tab PO HS 12/07/19 12/07/19 [amLODIPine/ATORVASTATIN 5-20 MG] Previous Rx's Medication Instructions Recorded Docusate [Colace] 100 mg PO DAILY #15 capsule 04/17/22 polyethylene glycoL 3350 [Miralax] 17 gm PO DAILY #15 packet 04/17/22 Allergies Allergy/AdvReac Type Severity Reaction Status Date / Time amoxicillin Allergy Anaphylaxis Verified 04/17/22 09:07 Iodinated Contrast Media Allergy Anaphylaxis Verified 04/17/22 09:07 [Iodinated Contrast- Oral and IV Dye] Review of Systems ROS Statement: Those systems with pertinent positive or pertinent negative responses have been documented in the HPI. ROS Other: All systems not noted in ROS Statement are negative. Past Medical History Past Medical History: Asthma, Coronary Artery Disease (CAD), Diabetes Mellitus, Hyperlipidemia Additional Past Medical History / Comment(s): History of PVC's and states he had a Cardiac Ablation at [facility]. States he is dx. with PAC's. History of Any Multi-Drug Resistant Organisms: None Reported Past Surgical History: Back Surgery, Cardiac Ablation Past Anesthesia/Blood Transfusion Reactions: No Reported Reaction Past Psychological History: No Psychological Hx Reported Smoking Status: Never smoker Past Alcohol Use History: None Reported Past Drug Use History: None Reported General Exam Limitations: no limitations General appearance: alert, in no apparent distress, other (This is a well developed, well nourished adult male patient in no acute distress. ) ENT exam: Present: normal exam, normal oropharynx, mucous membranes moist Respiratory exam: Present: normal lung sounds bilaterally. Absent: respiratory distress, wheezes, rales, rhonchi, stridor Cardiovascular Exam: Present: regular rate, normal rhythm, normal heart sounds. Absent: systolic murmur, diastolic murmur, rubs, gallop, clicks GI/Abdominal exam: Present: soft, tenderness (Mild right upper and lower quadrant tenderness.), normal bowel sounds. Absent: distended, guarding, rebound, rigid Neurological exam: Present: alert, oriented X3, CN II-XII intact Psychiatric exam: Present: normal affect, normal mood Skin exam: Present: warm, dry, intact, normal color. Absent: rash Course Vital Signs 04/17/22 04/17/22 04/17/22 09:07 10:31 11:50 Temperature 98.6 F 98.7 F Pulse Rate 73 68 87 Respiratory 16 20 18 Rate Blood Pressure 178/101 158/82 129/77 O2 Sat by Pulse 99 98 98 Oximetry Medical Decision Making - Medical Decision Making 62-year-old male patient presented to the emergency department for evaluation of abdominal discomfort, constipation, vomiting. Patient had right shoulder surgery on Tuesday, 5 days ago. No bowel movement since the procedure. Was pt. sent in by a medical professional or institution (, PA, STOREROOM KEEPER, urgent care, hospital, or [facility]...) When possible be specific @ -[No] Did you speak to anyone other than the patient for history (EMS, parent, family, police, friend...)? What history was obtained from this source @ -. Did you review nursing and triage notes (agree or disagree)? Why? @ -[I reviewed and agree with nursing and triage notes] Were old charts reviewed (outside hosp., previous admission, EMS record, old EKG, old radiological studies, urgent care reports/EKG's, [facility] records)? Report findings @ -[No old charts were reviewed] Differential Diagnosis (chest pain, altered mental status, abdominal pain women, abdominal pain men, vaginal bleeding, weakness, fever, dyspnea, syncope, headache, dizziness, GI bleed, back pain, seizure, CVA, palpatations, mental health)? @ -Differential Abdominal Pain Men: Appendicitis, cholecystitis, diverticulosis, ischemic bowel, pancreatitis, hepatitis, UTI, gastroenteritis, AAA, incarcerated hernia, bowel obstruction, constipation, inflammatory bowel, hepatitis, peptic ulcer disease, splenic infarction, perforated viscus, testicular torsion, this is not meant to be an all-inclusive list EKG interpreted by me (3pts min.). @ -[As above] X-rays interpreted by me (1pt min.). @ -Scattered bowel gas and a nonspecific pattern, no abnormalities noted. Did note stool burden in the rectum on the film. CT interpreted by me (1pt min.). @ -[None done] U/S interpreted by me (1pt. min.). @ -[None done] What testing was considered but not performed or refused? (CT, X-rays, U/S, labs)? Why? @ -Did recommend labs including CBC, CMP, Lactic, and Lipase. Patient was concerned about cost and wanted to be treated for constipation. What meds were considered but not given or refused? Why? @ -[None] Did you discuss the management of the patient with other professionals (professionals i.e. , PA, STOREROOM KEEPER, lab, RT, psych nurse, psychiatric social worker, cuff cutter, teacher, fourth officer, case repairer)? Give summary @ -My attending Dr. Yeh. Was smoking cessation discussed for >3mins.? @ -[No] Was critical care preformed (if so, how long)? @ -[No] Were there social determinants of health that impacted care today? How? (Homelessness, low income, unemployed, alcoholism, drug addiction, transportation, low edu. Level, literacy, decrease access to med. care, custodial, rehab)? @ -[No] Was there de-escalation of care discussed even if they declined (Discuss DNR or withdrawal of care, Hospice)? DNR status @ -[No] What co-morbidities impacted this encounter? (DM, HTN, Smoking, COPD, CAD, Cancer, CVA, ARF, Chemo, Hep., AIDS, mental health diagnosis, sleep apnea, morbid obesity)? @ -Rotator cuff rupture requiring surgery. Was patient admitted / discharged? Hospital course, mention meds given and route, prescriptions, significant lab abnormalities, going to OR and other pertinent info. @ -Did start IV on patient, administered zofran for nausea and vomiting. Enema was ordered for constipation after there was some evidence for stool burden in the rectum. Patient did request dose of pain medication prior to receiving enema. He did have a large bowel movement in the department. Reported improvement of symptoms. He is discharged home with prescriptions for colace, miralax, and a starter pack of zofran. Undiagnosed new problem with uncertain prognosis? @ -[No] Drug Therapy requiring intensive monitoring for toxicity (Heparin, Nitro, Insulin, Cardizem)? @ -[No] Were any procedures done? @ -Enema administered by RN. Diagnosis/symptom? @ -Abdominal Pain, Vomiting Acute, or Chronic, or Acute on Chronic? @ -Acute Uncomplicated (without systemic symptoms) or Complicated (systemic symptoms)? @ -Complicated by vomiting. Side effects of treatment? @ -[No] Exacerbation, Progression, or Severe Exacerbation? @ -[No] Poses a threat to life or bodily function? How? (Chest pain, [place], [place], pneumonia, PE, COPD, DKA, ARF, appy, cholecystitis, CVA, Diverticulitis, Homicidal, Suicidal, threat to staff... and all critical care pts) @ -[No] Disposition Clinical Impression: Vomiting, Abdominal pain Disposition: HOME SELF-CARE Condition: Good Instructions (If sedation given, give patient instructions): Constipation (ED), Acute Nausea and Vomiting (ED), Abdominal Pain (ED) Additional Instructions: Take medications as directed. Use zofran as needed for nausea. Take stool softener daily as long as you are taking pain medication. Use Miralax if stool softener is not effective. Follow up with PCP and field specialist as soon as possible. Prescriptions: Docusate [Colace] 100 mg PO DAILY #15 capsule polyethylene glycoL 3350 [Miralax] 17 gm PO DAILY #15 packet Is patient prescribed a controlled substance at d/c from ED?: No Referrals: Carlos Sharp DO [Primary Care Provider] - 1-2 days Time of Disposition: 11:40
--- NOTE | 2022-04-17 10:09 | XR ---
EXAMINATION TYPE: XR KUB DATE OF EXAM: 04/17/2022 9:42 AM INDICATION: Patient age:Male; 62 years old; Reason for study: Abd pain; constipation; COMPARISON: TECHNIQUE: One radiographic view of the abdomen was obtained. FINDINGS: The bowel gas pattern is nonspecific without dilated loops of small or large bowel. There i s no evidence for organomegaly or pneumoperitoneum. The osseous structures are intact. No abnormal calcifications are present. Fecal material and gas are demonstrated throughout the colon and rectum. . Changes of the spine scoliosis changes apex L3 on the left. IMPRESSION: Nonspecific bowel gas pattern without radiographic evidence for acute process.
[2022-04-17] MEDS ORDERED: HYDROmorphone 1 MG/ML 1 ML SYRINGE IVP STA (10:10)
[2022-04-17] MEDS ORDERED: ONDANSETRON 4 MG ODT STARTER PACK 2 TAB BTL PO STA (11:40)
[2022-04-17 11:51] VITALS: BP 129/77; PULSE 87; RESP 18; TEMP 98.7
== END 2022-04-17 11:56 | disposition home or self-care (01) ==
LOC: EC 09:01
DX: R10.11 Right upper quadrant pain (principal); R10.31 Right lower quadrant pain; R11.2 Nausea with vomiting, unspecified; J45.909 Unspecified asthma, uncomplicated; E11.9 Type 2 diabetes mellitus without complications; E78.5 Hyperlipidemia, unspecified; Z91.041 Radiographic dye allergy status; Z88.1 Allergy status to other antibiotic agents; Z79.84 Long term (current) use of oral hypoglycemic drugs; Z79.899 Other long term (current) drug therapy
CPT/HCPCS: 74018; 99284; 96374; 96375; J2405; J1170; S0119

== ENCOUNTER → 2023-01-06 | Outpatient (CLI) | payer BC ==
--- NOTE | 2023-01-06 09:10 | MR ---
EXAMINATION TYPE: MR lumbar spine wo/w con DATE OF EXAM: 01/06/2023 COMPARISON: CT abdomen pelvis 12/07/2019 HISTORY: Low back pain into left side, sciatica TECHNIQUE: Multiplanar, multisequence images of the lumbar spine were acquired without and with 12 mL intravenou s Gadavist gadolinium contrast. FINDINGS: Lumbar segments are intact. No paraspinal masses are identified. Conus medullaris has a normal appe arance. Mild levoscoliotic curvature lumbar spine with apex at L3. Type II Modic changes identified w ithin the L2 and L3 vertebral bodies. Multilevel disc desiccation. No abnormal contrast enhancement. L1-L2: Broad-based disc bulge with ligamentum flavum buckling and prominent posterior epidural fat. B ilateral facet arthropathy. There is mild central canal stenosis with mild bilateral neural foraminal stenosis. L2-L3: Broad-based disc bulge with ligamentum flavum buckling and prominent posterior epidural fat. B ilateral facet arthropathy. There is mild central canal stenosis with mild bilateral neural foraminal stenosis. L3-L4: Broad-based disc bulge with ligamentum flavum buckling and prominent epidural fat posteriorly. Bilateral facet arthropathy. This results in moderate to severe central canal stenosis. Moderate aleta ateral neural foraminal stenosis. L4-L5: No herniation, protrusion or disc bulging. No canal stenosis is present. Prominent epidural f at posteriorly. Bilateral facet arthropathy resulting in moderate bilateral neural foraminal stenosis . L5-S1: Post surgical changes with disc hardware. This creates significant susceptibility artifact whi ch limits evaluation. IMPRESSION: 1. Multilevel degenerative disease and facet arthropathy as described above. This is most prominent a t L3-L4 causing moderate to severe central canal stenosis. 2. Postsurgical changes with disc hardware at L5-S1 which creates significant susceptibility artifact which limits evaluation.
== END | disposition home or self-care (01) ==
LOC: RADMRIMAIN 07:32
PROVIDERS: ATTEND Orthopaedic Surgery
DX: M47.26 Other spondylosis with radiculopathy, lumbar region (principal); M51.17 Intervertebral disc disorders with radiculopathy, lumbosacral region; M48.061 Spinal stenosis, lumbar region without neurogenic claudication; G89.29 Other chronic pain
CPT/HCPCS: 72158; A9585